=== PATIENT | male | born 1995 | race Caucasian/White ===

== ENCOUNTER 2019-04-24 17:21 | Emergency (ER) | payer OTHER ==
[~2019-04-24] VITALS: Ht 180.3 cm; Wt 63.6 kg
[2019-04-24 17:27] VITALS: BP 121/65
== END 2019-04-24 18:23 | disposition home or self-care (01) ==
LOC: ED 18:00
DX: S93.401A Sprain of unspecified ligament of right ankle, initial encounter (principal); V00.131A Fall from skateboard, initial encounter; Y93.51 Activity, roller skating (inline) and skateboarding; Y92.89 Other specified places as the place of occurrence of the external cause; Y99.8 Other external cause status
CPT/HCPCS: 99283

== ENCOUNTER 2019-05-23 11:47 | Emergency (ER) | payer SELFPAY ==
[~2019-05-23] VITALS: Ht 175.3 cm; Wt 65.0 kg
[2019-05-23 11:59] VITALS: BP 98/54
[2019-05-23] MEDS ORDERED: HYDROcodone/APAP 5/325 TABLET ONE (12:20)
--- NOTE | 2019-05-23 12:23 | NUR ---
Patient ambulated self to bed; ao; provider to bedside, orders verbalized; patient verbalized understanding. Medication orders placed by provider; RN educated on narcotics for fall risk; abuse potential; patient verbalized understanding. Awaiting imaging results.
[2019-05-23] MEDS ORDERED: HYDROcodone/APAP 5/325 TABLET PO ONE (12:30)
== END 2019-05-23 13:36 | disposition home or self-care (01) ==
LOC: ED 13:18
DX: S92.255A Nondisplaced fracture of navicular [scaphoid] of left foot, initial encounter for closed fracture (principal); F17.200 Nicotine dependence, unspecified, uncomplicated; X58.XXXA Exposure to other specified factors, initial encounter; Y93.89 Activity, other specified; Y92.89 Other specified places as the place of occurrence of the external cause; Y99.8 Other external cause status
CPT/HCPCS: 29125; 99283

== ENCOUNTER 2019-10-11 20:44 | Emergency (ER) | payer SELFPAY ==
[~2019-10-11] VITALS: Ht 175.3 cm; Wt 71.4 kg
[2019-10-11 20:52] VITALS: BP 126/60
[2019-10-11] MEDS ORDERED: BUPIVACAINE/PF 0.5% ONE (21:46)
[2019-10-11] MEDS ORDERED: LIDOCAINE-MPF 1%, 5ML ONE (21:46)
[2019-10-11] MEDS ORDERED: BUPIVACAINE 0.25% ONE (21:48)
[2019-10-11] MEDS ORDERED: BUPIVACAINE 0.25% INFIL ONE (22:00)
[2019-10-11] MEDS ORDERED: LIDOCAINE 1%, 10ML INFIL ONE (22:00)
== END 2019-10-11 22:11 | disposition home or self-care (01) ==
LOC: ED 21:46
DX: K02.9 Dental caries, unspecified (principal); K08.89 Other specified disorders of teeth and supporting structures; F17.210 Nicotine dependence, cigarettes, uncomplicated
CPT/HCPCS: 64400; 99284; J3490